=== PATIENT | male | born 1970 | race Caucasian/White ===

== ENCOUNTER 2019-08-18 22:21 | Inpatient (IN) ==
[2019-08-18] MEDS ORDERED: Heparin 1,000 UNITS/500 mL 500 ML ONE (22:45)
[2019-08-18] MEDS ORDERED: 0.9 % Sodium Chloride 2,000 ML ONE (22:45)
[2019-08-18] MEDS ORDERED: ISOVUE-370 200 ML INFUS..BTL ONE (22:46)
[2019-08-18] MEDS ORDERED: Nitroglycerin 1,000 MCG/10 ML VIAL IV ONE (22:46)
[2019-08-18] MEDS ORDERED: *HR* Heparin 10,000 UNIT/10 ML VIAL ONE (22:46)
[2019-08-19] MEDS ORDERED: *HR* FentaNYL (PF) 100 MCG/2 ML VIAL ONE (00:28)
[2019-08-19] MEDS ORDERED: *HR* Midazolam HCl 2 MG/2 ML VIAL ONE (00:28)
[2019-08-19] MEDS ORDERED: Tirofiban 12.5 MG/250ML 12.5 MG/250 ML BAG ONE (00:44)
[2019-08-19] MEDS ORDERED: ISOVUE-370 200 ML INFUS..BTL ONE (00:55)
[2019-08-19] MEDS ORDERED: Tirofiban 12.5 MG/250ML 12.5 MG/250 ML BAG IVC SCH (01:45)
[2019-08-19 05:54] LABS: Basophils % 0.3 %; Eosinophils % 0.3 %; Hematocrit 41.9 % (37.5-50.1); Hemoglobin 15.3 g/dL (12.9-16.9); Immature Granulocytes % 0.3 % (0-4); Lymphocytes # 1.5 K/mcL (0.6-4.6); Lymphocytes % 23.9 %; Mean Corpuscular HGB Conc 36.5 g/dL (31.6-35.5); Mean Corpuscular Hemoglobin 31.3 pg (28.0-33.3); Mean Corpuscular Volume 85.7 fL (83.0-100.0); Monocytes # 0.5 K/mcL (0.0-1.3); Monocytes % 7.6 %; Neutrophils # 4.2 K/mcL (1.6-8.9); Platelet Count 139 K/mcL (140-400); Red Blood Count 4.89 M/mcL (4.19-5.50); Red Cell Distribution Width 13.1 % (11.5-14.5); Segmented Neutrophils % 67.6 %; White Blood Count 6.2 K/mcL (4.3-11.1)
[2019-08-19 06:36] LABS: BUN/Creatinine Ratio 16 (6-26); Blood Urea Nitrogen 14 mg/dL (6-20); Calcium 9.5 mg/dL (8.6-10.3); Carbon Dioxide 25 mEq/L (23-29); Chloride 102 mEq/L (98-107); Glucose 182 mg/dL (70-105); Osmolality,Calculated 291 (280-300); Potassium 4.4 mEq/L (3.5-5.1); Sodium 138 mEq/L (136-145); eGFR For African Americans > 60 (> 60); eGFR For Non-African Americans > 60 (> 60)
[2019-08-19] MEDS ORDERED: Perflutren Lipid Microsphere 1.3 ML in 0.9 % Sodium Chloride 8.7 ML IVP ONE (06:50)
[2019-08-19] MEDS ORDERED: Dextrose Gel 15 GM/37.5 ML TUBE PO PRN ×2 (08:19)
[2019-08-19] MEDS ORDERED: *HR* Dextrose 50 % in Water (Syg) 50 ML SYRINGE IVP PRN (08:19)
[2019-08-19] MEDS ORDERED: D5% in Water 1,000 ML IVC PRN (08:19)
[2019-08-19] MEDS ORDERED: Acetaminophen 325 MG TABLET PO PRN (08:35)
[2019-08-19] MEDS: Aspirin 81 MG TAB.CHEW PO SCH (08:55)
[2019-08-19] MEDS: Metoprolol XL (24 HR) Succ 25 MG TAB.ER.24H PO SCH (08:56)
[2019-08-19] MEDS: Insulin LISPRO 300 UNITS/3 ML VIAL SQ SCH ×2 (12:04→16:43)
[2019-08-19] MEDS: *HR* Heparin 5,000 UNIT/ML VIAL SQ SCH (16:43)
[2019-08-20] MEDS: *HR* Heparin 5,000 UNIT/ML VIAL SQ SCH (06:39)
[2019-08-20] MEDS ORDERED: Gabapentin 400 MG CAPSULE PO SCH (09:00)
[2019-08-20] MEDS ORDERED: OXcarbazepine 150 MG TABLET PO SCH (09:00)
[2019-08-20] MEDS ORDERED: ERTUGLIFLOZIN PIDOLATE 15 MG PO SCH (09:00)
[2019-08-20] MEDS ORDERED: Loratadine 10 MG TABLET PO SCH (09:00)
[2019-08-20] MEDS ORDERED: OLODATEROL HCL IH SCH (09:00)
[2019-08-20 09:04] LABS: Basophils % 0.3 %; Eosinophils % 0.5 %; Hematocrit 41.9 % (37.5-50.1); Hemoglobin 14.6 g/dL (12.9-16.9); Immature Granulocytes % 0.4 % (0-4); Lymphocytes # 1.9 K/mcL (0.6-4.6); Lymphocytes % 25.3 %; Mean Corpuscular HGB Conc 34.8 g/dL (31.6-35.5); Mean Corpuscular Hemoglobin 31.1 pg (28.0-33.3); Mean Corpuscular Volume 89.3 fL (83.0-100.0); Mean Platelet Volume 10.1 fL (9.4-12.4); Monocytes # 0.6 K/mcL (0.0-1.3); Neutrophils # 4.9 K/mcL (1.6-8.9); Platelet Count 109 K/mcL (140-400); Red Blood Count 4.69 M/mcL (4.19-5.50); Red Cell Distribution Width 13.1 % (11.5-14.5); Segmented Neutrophils % 65.5 %; White Blood Count 7.4 K/mcL (4.3-11.1)
[2019-08-20 09:23] LABS: BUN/Creatinine Ratio 24 (6-26); Blood Urea Nitrogen 18 mg/dL (6-20); Calcium 9.5 mg/dL (8.6-10.3); Carbon Dioxide 25 mEq/L (23-29); Chloride 102 mEq/L (98-107); Glucose 141 mg/dL (70-105); Osmolality,Calculated 286 (280-300); Potassium 3.8 mEq/L (3.5-5.1); Sodium 136 mEq/L (136-145); eGFR For African Americans > 60 (> 60); eGFR For Non-African Americans > 60 (> 60)
[2019-08-20] MEDS: Aspirin 81 MG TAB.CHEW PO SCH (09:44)
[2019-08-20] MEDS: Metoprolol XL (24 HR) Succ 25 MG TAB.ER.24H PO SCH (09:45)
[2019-08-20] MEDS: Insulin LISPRO 300 UNITS/3 ML VIAL SQ SCH ×2 (09:45→11:34)
[2019-08-20 14:51] VITALS: BP 129/97
== END 2019-08-20 15:25 | disposition left against medical advice (07) | DRG 174 ==
LOC: ICNU 08-19 01:50
PROVIDERS: ADMIT Internal Medicine Cardiovascular Disease; ATTEND Internal Medicine Cardiovascular Disease